=== PATIENT | female | born 1990 | race Caucasian/White ===

== ENCOUNTER 2016-08-02 09:34 | Emergency (ER) | payer OTHER ==
[~2016-08-02] VITALS: Ht 177.8 cm; Wt 59.0 kg
[~2016-08-02 09:34] MED LIST: AUGM500T7 PO; DHA200CA PO; OXYC1SOL5 PO; PREN1TAB30 PO
[2016-08-02 09:36] VITALS: BP 142/80; PULSE 94; RESP 24; TEMP 98.1; O2SAT 100
[2016-08-02] MEDS ORDERED: ASPI1TAB69 PO (09:51)
[2016-08-02] MEDS ORDERED: methylPREDNISolone SOD SUCC 125 MG/2 ML VIAL IV PUSH ONE (10:00)
--- NOTE | 2016-08-02 10:05 | PD ---
HPI Chief Complaint: Pain: Acute or Chronic Time Seen by Provider: 09:59 Travel History International Travel<30 days: No Contact w/Intl Traveler<30days: No Traveled to known affect area: No History of Present Illness HPI Patient is a 25-year-old female presenting to emergency department evaluation of progressive joint pain. Patient states the pain started almost 2 months ago in her knees and has progressed to include her shoulders, back, hips. She denies any injury or trauma prior to the pain starting, she denies any excessive physical activity. Patient's past medical history includes factor V Leiden, she is on a baby aspirin daily. She has no history of DVT. PFS Past Medical History Asthma: Yes Blood Disorders: Yes ( FACTOR V LEIDEN) Diminished Hearing: No Immunizations Current: Yes ?: Not Social History Alcohol Use: No Tobacco Use: No Substance Use: No Allergies-Medications (Allergen,Severity, Reaction): Coded Allergies: Singulair (Verified Allergy, Severe, TONGUE AND THROAT SWELLING, SOB, 08/02) Reported Meds & Prescriptions Reported Meds & Active Scripts Active Reported Aspirin 81 Mg Tabdr 81 Mg PO DAILY Review of Systems Except as stated in HPI: all other systems reviewed are Neg General / Constitutional: No: Fever, Chills HENT: No: Headaches, Lightheadedness Cardiovascular: No: Chest Pain or Discomfort, Palpitations, Tachycardia Respiratory: No: Shortness of Breath Gastrointestinal: No: Nausea, Abdominal Pain Musculoskeletal: Positive: Myalgias, Pain Neurologic: No: Weakness, Dizziness, Focal Abnormalities Physical Exam Narrative GENERAL: Well-developed, well-nourished, alert female. Appears uncomfortable, in no acute distress. SKIN: Warm and dry. HEAD: Atraumatic. Normocephalic. EYES: Pupils equal and round. No scleral icterus. No injection or drainage. ENT: No nasal bleeding or discharge. Mucous membranes pink and moist. NECK: Trachea midline. No JVD. CARDIOVASCULAR: Regular rate and rhythm. No murmur appreciated. RESPIRATORY: No accessory muscle use. Clear to auscultation. Breath sounds equal bilaterally. GASTROINTESTINAL: Abdomen soft, non-tender, nondistended. Hepatic and splenic margins not palpable. MUSCULOSKELETAL: No obvious deformities. No clubbing. No cyanosis. No edema. Full range of motion in all 4 extremities. Patient is neurovascularly intact. NEUROLOGICAL: Awake and alert. No obvious cranial nerve deficits. Motor grossly within normal limits. Normal speech. PSYCHIATRIC: Appropriate mood and affect; insight and judgment normal. Data Data Last Documented VS Vital Signs Date Time Temp Pulse Resp B/P Pulse Ox O2 Delivery O2 Flow Rate FiO2 08/02/16 09:36 98.1 94 24 142/80 100 Room Air Orders Complete Blood Count With Diff (08/02/16 09:55) Westergren Sedimentation Rate (08/02/16 09:55) C-Reactive Protein (Crp) (08/02/16 09:55) Basic Metabolic Panel (Bmp) (08/02/16 09:55) Iv Access Insert/Monitor (08/02/16 09:55) Methylprednisolone So Succ Inj (Solumedr (08/02/16 10:00) Labs Laboratory Tests Test 08/02/16 10:07 White Blood Count 6.2 TH/MM3 Red Blood Count 4.04 MIL/MM3 Hemoglobin 12.6 GM/DL Hematocrit 37.1 % Mean Corpuscular Volume 91.9 FL Mean Corpuscular Hemoglobin 31.2 PG Mean Corpuscular Hemoglobin 34.0 % Concent Red Cell Distribution Width 12.4 % Platelet Count 202 TH/MM3 Mean Platelet Volume 9.5 FL Neutrophils (%) (Auto) 56.5 % Lymphocytes (%) (Auto) 31.8 % Monocytes (%) (Auto) 7.9 % Eosinophils (%) (Auto) 3.3 % Basophils (%) (Auto) 0.5 % Neutrophils # (Auto) 3.5 TH/MM3 Lymphocytes # (Auto) 2.0 TH/MM3 Monocytes # (Auto) 0.5 TH/MM3 Eosinophils # (Auto) 0.2 TH/MM3 Basophils # (Auto) 0.0 TH/MM3 CBC Comment DIFF FINAL Differential Comment Erythrocyte Sedimentation Rate 6 mm/hr Sodium Level 141 MEQ/L Potassium Level 3.9 MEQ/L Chloride Level 108 MEQ/L Carbon Dioxide Level 27.3 MEQ/L Anion Gap 6 MEQ/L Blood Urea Nitrogen 15 MG/DL Creatinine 0.87 MG/DL Estimat Glomerular Filtration 80 ML/MIN Rate Random Glucose 57 MG/DL Calcium Level 8.1 MG/DL C-Reactive Protein LESS THAN 0.29 MG/DL MDM Medical Decision Making Medical Screen Exam Complete: Yes Emergency Medical Condition: Yes Interpretation(s) Vital Signs Date Time Temp Pulse Resp B/P Pulse Ox O2 Delivery O2 Flow Rate FiO2 08/02/16 09:36 98.1 94 24 142/80 100 Room Air Differential Diagnosis Fibromyalgia versus polymyalgia rheumatica versus arthritis versus malingering versus other Narrative Course Patient is a 25-year-old female presenting to the right arm for evaluation of joint pain. Pain started several weeks ago, patient has not been evaluated by a primary doctor but she has been evaluated by orthopedic surgeon who ordered x- rays which were negative and physical therapy. Labs ordered and pending. Solu- Medrol given IV. 1100-patient reassessed, resting comfortably. Reports some improvement in pain. 1156- patient reports her pain went from a 10/10 to a 4/10. Patient will be given a short course of oral steroids, she was advised to follow-up with her primary doctor for further testing to rule out an autoimmune process such as lupus or rheumatoid arthritis etc. Patient verbalized understanding of instructions. She was strongly encouraged to return to emergency department for any new or worsening symptoms. Diagnosis Primary Impression: Arthralgia Qualified Code: M25.50 - Arthralgia, unspecified joint Referrals: Primary Care Physician Patient Instructions: Arthralgia (ED), General Instructions Additional Instructions: Follow-up with a primary doctor Take medications as directed Return to emergency department for any new or worsening symptoms Med/Other Pt SpecificInfo: Prescription(s) given Scripts Prednisone 50 Mg Tab50 Mg PO DAILY #5 TAB Ref 0 Prov:Kelly Abarca 08/02/16 Disposition: 01 DISCHARGE HOME Condition: Stable Kelly Abarca Aug 02, 2016 10:05
[2016-08-02 10:21] LABS: AUTOMATED NEUTROPHIL # 3.5 TH/MM3 (1.8-7.7); BASOPHIL % 0.5 % (0.0-2.0); EOSINOPHIL # 0.2 TH/MM3 (0-0.4); EOSINOPHIL % 3.3 % (0.0-4.0); HEMATOCRIT 37.1 % (35.0-46.0); HEMO FLAGS DIFF FINAL; LYMPH % 31.8 % (9.0-44.0); MEAN CELL VOLUME 91.9 FL (80.0-100.0); MEAN CORPUSCULAR HEMOGLOBIN 31.2 PG (27.0-34.0); MONO % 7.9 % (0.0-8.0); NEUT % 56.5 % (16.0-70.0); PLATELET COUNT 202 TH/MM3 (150-450); RED BLOOD COUNT 4.04 MIL/MM3 (4.00-5.30); RED CELL DISTRIBUTION WIDTH 12.4 % (11.6-17.2); WHITE BLOOD COUNT 6.2 TH/MM3 (4.0-11.0)
[2016-08-02 10:41] LABS: ANION GAP 6 MEQ/L (5-15); BICARBONATE 27.3 MEQ/L (21.0-32.0); BLOOD UREA NITROGEN 15 MG/DL (7-18); CHLORIDE 108 MEQ/L (98-107); GLOMERULAR FILTRATION RATE 80 ML/MIN (>89); POTASSIUM 3.9 MEQ/L (3.5-5.1); SODIUM (NA) 141 MEQ/L (136-145)
[2016-08-02] MEDS ORDERED: PRED50 PO (11:59)
[2016-09-14] MEDS ORDERED: TRAM50TA PO (09:51)
[2016-09-14] MEDS ORDERED: TRIM300C19 PO (09:51)
[2016-09-14] MEDS ORDERED: ALBUAER3 INH (09:53)
== END 2016-08-02 12:16 | disposition home or self-care (01) ==
LOC: NEPB 09:34
DX: M25.562 Pain in left knee (principal); M25.50 Pain in unspecified joint; D68.51 Activated protein C resistance
CPT/HCPCS: 80048; 85025; 85652; 86140; 96374; 99283; J2930

== ENCOUNTER → 2016-09-14 | Outpatient (CLI) | payer OTHER ==
[~2016-09-14] MED LIST changes: +ALBUAER3 INH; +ASPI1TAB69 PO; -AUGM500T7 PO; -DHA200CA PO; -OXYC1SOL5 PO; +PRED50 PO; -PREN1TAB30 PO; +TRAM50TA PO; +TRIM300C19 PO
[2016-09-14 10:19] LABS: AUTOMATED NEUTROPHIL # 4.2 TH/MM3 (1.8-7.7); BASOPHIL % 0.6 % (0.0-2.0); EOSINOPHIL # 0.3 TH/MM3 (0-0.4); EOSINOPHIL % 3.7 % (0.0-4.0); HEMO FLAGS DIFF FINAL; LYMPH % 29.3 % (9.0-44.0); LYMPHOCYTE # 2.1 TH/MM3 (1.0-4.8); MEAN CORPUSCULAR HEMOGLOBIN 30.9 PG (27.0-34.0); MEAN CORPUSCULAR HGB CONC 33.6 % (32.0-36.0); MONO % 7.9 % (0.0-8.0); NEUT % 58.5 % (16.0-70.0); PLATELET COUNT 182 TH/MM3 (150-450); RED BLOOD COUNT 4.67 MIL/MM3 (4.00-5.30); RED CELL DISTRIBUTION WIDTH 12.3 % (11.6-17.2); WHITE BLOOD COUNT 7.2 TH/MM3 (4.0-11.0)
[2016-09-14 10:27] LABS: BACTERIA, URINE MANY /hpf; BLOOD, URINE NEG (NEG); GLUCOSE,URINE NEG (NEG); KETONE, URINE NEG (NEG); MUCUS URINE FEW /lpf (OCC); SQUAMOUS EPITHELIAL CELL URINE 3 /hpf (0-5); URINE COLOR YELLOW (YELLW/STRAW)
[2016-09-14 10:28] LABS: NITRITE,URINE POS (NEG)
[2016-09-14 10:42] LABS: ANION GAP 4 MEQ/L (5-15); BICARBONATE 30.2 MEQ/L (21.0-32.0); BLOOD UREA NITROGEN 9 MG/DL (7-18); CHLORIDE 106 MEQ/L (98-107); GLOMERULAR FILTRATION RATE 116 ML/MIN (>89); GLUCOSE,FASTING 81 MG/DL (74-99); POTASSIUM 3.8 MEQ/L (3.5-5.1); SODIUM (NA) 140 MEQ/L (136-145)
[2016-09-14 10:49] LABS: BHCG SCREEN QUALITATIVE LESS THAN 1 MIU/ML (0-5)
== END ==
LOC: CPRE 09:30
PROVIDERS: ATTEND Obstetrics & Gynecology
DX: Z01.812 Encounter for preprocedural laboratory examination (principal); R10.2 Pelvic and perineal pain
CPT/HCPCS: 36415; 80048; 81001; 84703; 85025

== ENCOUNTER → 2016-09-22 | Day surgery (SDC) | payer OTHER ==
[~2016-09-22] VITALS: Ht 177.8 cm; Wt 57.7 kg
[~2016-09-22] MED LIST changes: +*diphenhydrAMINE HCL 50 MG/ML VIAL PERIprocedural Use ONLY ONE; +*morphine SULFATE 8 MG/ML PERIprocedure ONLY ONE; +ACETAMINOPHEN 1000 MG/100 ML VIAL IV ONE; +APREPITANT 40 MG CAP PO SCH; +BUPIVACAINE HCL PF 0.25% 30 ML VIAL ONE; +CHLORHEXIDINE GLUCONATE 2 % 1 PACK (2 CLOTHS) TOPICAL PRN; +DEXAMETHASONE SOD PHOS 4 MG/ML VIAL ONE; +DO NOT ADM ANY ANTICOAGULANT DRUGS PRN; +HYDROmorphone HCL PF 1 MG/ML VIAL IVP PRN; +IBUPROFEN 600 MG TAB PO PRN; +INSULIN HUMAN REGULAR 1,000 UNITS/10 ML VIAL SQ PRN; +KETOROLAC TROMETHAMINE 30 MG/ML (IVP) VIAL IVP PRN; +LACTATED RINGER'S 1000 ML INJ 1,000 ML IV ONE; +LACTATED RINGER'S 1000 ML INJ 1,000 ML IV SCH; +LACTATED RINGER'S 1000 ML IV PRN; +LORazepam 0.5 MG TAB PO PRN; +METOPROLOL TARTRATE 25 MG TAB PO PRN; +MIDAZOLAM HCL 2 MG/2 ML VIAL ONE; +ONDANSETRON HCL 4 MG/2 ML VIAL IV PUSH ONE; +ONDANSETRON HCL 4 MG/2 ML VIAL IVP PRN; +PHENYLEPH/NS 1000 MCG/10 ML SYR IV ONE; +POVIDONE IODINE 5% (ANTISEPSIS KIT) 4 APPLICATIONS EACH NARE PRN; -PRED50 PO; +PROPOFOL 200 MG/20 ML AMP IV ONE; +SODIUM CHLORID 0.9% 500 ML IV PRN; +SODIUM CHLORIDE 0.9% FLUSH 10 ML FLUSH IV FLUSH PRN; +SODIUM CHLORIDE 0.9% FLUSH 10 ML FLUSH IV FLUSH SCH; +SUGAMMADEX SODIUM 200 MG/2 ML VIAL IV PUSH ONE; +ceFAZolin 2 GM PREMIX 50 ML IV SCH; +fentaNYL CITRATE 250 MCG/5 ML AMP ONE; +oxyCODONE/ACETAMINOPHEN 5 MG/325 MG TAB PO PRN
[2016-09-22 06:30] VITALS: BP 98/58; PULSE 86; RESP 18; TEMP 98.1; O2SAT 98
[2016-09-22 10:10] VITALS: BP 105/59; PULSE 56; RESP 18; TEMP 98.1; O2SAT 100
--- NOTE | 2016-09-23 14:38 | MP ---
cc: MANJINDER GARCIA M.D., ELIZABETH M. MD DATE OF SURGERY 09/22/2016 DATE OF 1990 PREOPERATIVE DIAGNOSIS Patient with chronic pelvic pain, dysmenorrhea, dyspareunia, suspect endometriosis. PROCEDURE Diagnostic laparoscopy POSTOPERATIVE DIAGNOSIS Patient with chronic pelvic pain, dysmenorrhea, dyspareunia, suspect endometriosis. Normal pelvic anatomy. No evidence of endometriosis or pelvic adhesions normal assessment. SURGEON Manjinder Garcia MD ANESTHESIA General with endotracheal intubation ESTIMATED BLOOD LOSS None DRAINS Patino to gravity during the procedure only OPERATIVE FINDINGS The patient had normal midline uterus, cervix is normal size and shape. The endometrial cavity was symmetrical. The pelvic anatomy demonstrated bilateral normal fallopian tubes, ovaries, uterus and peritoneum. Extensive evaluation of the peritoneal surfaces were cleaned. There were no colored lesions, deformities, scars or defects. The patient's upper quadrants were normal. Appendix was easily visualize normal size and shape. There were no adhesions involving the abdominal wall. The uterus was midline anteverted. INDICATIONS FOR THE PROCEDURE Patient with a history of factor five deficiency postdelivery develops chronic pelvic pain, dyspareunia and dysmenorrhea. The patient had extensive evaluation for sacroiliac joint instability. The patient, despite that evaluation, continued to have gynecologic symptoms due to her Factor five deficiency. She is unable to use oral contraceptives as a medical therapy. After evaluating the patient symptoms and her exam, the patient elected for diagnostic laparoscopy with potential for removal of endometriosis and diagnosis. PROCEDURE The patient was taken to the operating room in stable condition, received Ancef 2 grams prophylactically. She underwent general anesthesia with endotracheal intubation. She was carefully positioned in the dorsolithotomy position using Nicolas stirrups on the lower extremities and she had sequential placed for VTE prophylaxis. After she was prepped and draped, a time-out was conducted agreed by all present in the room. The procedure continued by evaluating the pelvis, placing a Patino catheter in sterile technique and then inserting a small V-Care device in through the cervix and uterine cavity for manipulation. Gloves were changed. The abdomen was examined. There were no definitive scars. The patient had multiple tattoos, but no deformity. No skin lesions. No masses. The patient was exceedingly thin. The umbilical port site was chosen first. It was injected with quarter percent plain Marcaine. A small incision was made and a #12 visible port trocar was inserted into the peritoneal cavity under direct vision, insufflating the peritoneum at low pressure and then using a 0 degrees lens with a straight laparoscopy to evaluate the pelvis. The patient was then placed in Trendelenburg and then a small accessory port was placed in the right lower quadrant on the abdominal surface. Evaluation of the pelvic anatomy revealed the findings as stated above. Careful meticulous evaluation of the entire pelvic cavity and upper quadrants proved devoid of any abnormality or evidence of endometriosis, scar tissue or adhesions. At the completion of the case, the pneumoperitoneum was decompressed and then reinsufflated. No active bleeding was noted. The umbilical port was closed with a crossbow suture closure device without complication and then at that point, the pneumoperitoneum was decompressed completely and the skin incisions were closed with a subcuticular stitch of 4-0 Monocryl. Steri-Strips and Band-Aids. The Patino and V-Care device were then removed from the pelvis without difficulty. There was a minimal bleeding from the cervix at the time of the removal. At the completion of the case, final counts were correct. The patient was stable. She was taken to the recovery room on room air. MD ANGEL Nava/UDAY /8:52 AM /2:27 PM
== END | disposition home or self-care (01) ==
LOC: HSDC 05:50
PROVIDERS: ATTEND Obstetrics & Gynecology
DX: R10.2 Pelvic and perineal pain (principal); N94.6 Dysmenorrhea, unspecified; N94.10 Unspecified dyspareunia; D68.2 Hereditary deficiency of other clotting factors; M53.2X8 Spinal instabilities, sacral and sacrococcygeal region
CPT/HCPCS: 00840; 49320; 86850; 86900; 86901; J0131; J0690; J1100; J1200; J1885; J2250; J2270; J2370; J2405; J3010; J7120; J8501